=== PATIENT | male | born 1950 | race Caucasian/White ===

== ENCOUNTER → 2018-10-30 | Outpatient (REF) | payer MEDICARE, OTHER | LOC: M SMT 13:39 | PROVIDERS: ATTEND Nurse Practitioner Family | DX: R97.20 Elevated prostate specific antigen [PSA] (principal) | CPT/HCPCS: 87086; G0463 ==

== ENCOUNTER → 2019-02-25 | Outpatient (CLI) | payer MEDICARE, OTHER ==
[~2019-02-25] MED LIST: ASPI81TA85 PO; CIAL20TA PO; LANTINJ4 SC; LISI-542 PO; METF-791 PO; NITR0.4S14 SL; NOVOINJ3 SC; SIMV40TA20 PO; TRUL10IN SC
--- NOTE | 2019-02-25 12:26 | REPPI ---
Prostate sonography: History: Elevated PSA. Sonographic findings: Trans rectal prostate sonography demonstrates unremarkable seminal vesicles. Prostate gland is heterogeneously enlarged with calcifications and cystic changes noted. Glandular dimensions are measured at 4.7 x 2.6 x 4.8 cm with a calculated glandular volume of 3.2 ml. Transrectal sonographic guidance is provided to Dr. Billings who performed trans rectal ultrasound guided needle biopsy procedure . Electronically Signed by Jonas Goode MD 02/25/2019 12:18 P
== END ==
LOC: M SMT PRO 08:13
PROVIDERS: ATTEND Urology
DX: C61 Malignant neoplasm of prostate (principal)
CPT/HCPCS: 55700; 76872; 76942; A4648; G0416

== ENCOUNTER 2019-04-02 05:56 | Inpatient (IN) | payer MEDICARE, BC, OTHER ==
[~2019-04-02] VITALS: Ht 177.8 cm; Wt 102.1 kg
[2019-04-02] VITALS (8 sets, daily range): BP systolic 110–119; BP diastolic 58–64
[~2019-04-02 05:56] MED LIST changes: +CORICAP PO; +METO25TA4 PO
[2019-04-02] MEDS ORDERED: HEPARIN SOD (PORCINE) 5000 UNITS/ML VIAL (J1644 PER 1000UNITS) SQ ONE (06:45)
[2019-04-02] MEDS ORDERED: LR 1,000 ML IV ONE (07:00)
[2019-04-02] MEDS ORDERED: ceFAZolin SOD 2 GM in IV 1 EA IV ONE (07:00)
[2019-04-02] MEDS ORDERED: LIDOCAINE 1% SDV INJ 30 ML VIAL As Ordered ONE (07:07)
[2019-04-02] MEDS ORDERED: BUPIVACAINE HCL 0.25% 30 ML VIAL As Ordered ONE (07:07)
[2019-04-02] MEDS ORDERED: LIDOCAINE 2% INJ 100 MG/5 ML SDV (FOR ANES.) As Ordered ONE (07:17)
[2019-04-02] MEDS ORDERED: dexameTHASONE 4 MG/ML 1ML VIAL (J1100) As Ordered ONE (07:17)
[2019-04-02] MEDS ORDERED: propofoL 200 MG/20 ML VIAL As Ordered ONE (07:17)
[2019-04-02] MEDS ORDERED: ROCURONIUM BROMIDE 50 MG/5 ML VIAL As Ordered ONE ×2 (07:17→08:37)
[2019-04-02] MEDS ORDERED: fentaNYL 250 MCG/5 ML INJECTION (J3010) As Ordered ONE (07:20)
[2019-04-02] MEDS ORDERED: MIDAZOLAM INJ 2 MG/2 ML VIAL (J2250) As Ordered ONE (07:21)
[2019-04-02] MEDS ORDERED: GLUCOSE 4 GM CHEW TABLET PO PRN (07:45)
[2019-04-02] MEDS ORDERED: DEXTROSE 50% 50 ML SYRINGE IV PRN (07:45)
[2019-04-02] MEDS ORDERED: NITROGLYCERIN 0.4 MG SUBL TABLET SL PRN (07:45)
[2019-04-02] MEDS ORDERED: PERCOCET 5MG/325MG TAB PO PRN ×2 (07:45)
[2019-04-02] MEDS ORDERED: ACETAMINOPHEN TAB 650MG DOSE (2X325MG) PO PRN (07:45)
[2019-04-02] MEDS ORDERED: MORPHINE 2 MG/ML 1ML VIAL (J2270) IV PRN (07:45)
[2019-04-02] MEDS ORDERED: ONDANSETRON 4MG/2ML VIAL (J2405) IV PRN ×2 (07:45→12:45)
[2019-04-02] MEDS ORDERED: GLUCAGON FOR INJ 1 MG VIAL (J1610) SC PRN (07:45)
[2019-04-02] MEDS ORDERED: LACRILUBE (AKWA TEARS) OPHTH OINT 3.5 GM As Ordered ONE (07:56)
[2019-04-02] MEDS ORDERED: PHENYLephrine HCL 500 MCG/5 ML (100MCG/ML) SYRINGE (J2370) As Ordered ONE ×2 (08:02→11:10)
[2019-04-02] MEDS ORDERED: METOCLOPRAMIDE INJ 10MG/2ML VIAL (J2765) As Ordered ONE (08:21)
[2019-04-02] MEDS ORDERED: ePHEDrine SULFATE 25 MG/5 ML(5MG/ML) SYRINGE As Ordered ONE ×2 (08:51→11:10)
[2019-04-02] MEDS ORDERED: ACETAMINOPHEN 1000MG 100ML IV BTL (OFIRMEV) (J0131 PER 10MG) As Ordered ONE (09:19)
[2019-04-02] MEDS ORDERED: HYDROmorphone HCL 2 MG/ML 1ML VIAL (J1170) As Ordered ONE (09:19)
[2019-04-02] MEDS ORDERED: METOPROLOL 5 MG/5 ML VIAL As Ordered ONE (11:10)
[2019-04-02] MEDS ORDERED: SUGAMMADEX SODIUM 500 MG/5 ML VIAL (BRIDION) As Ordered ONE (11:32)
[2019-04-02] MEDS: HumaLOG INSULIN (NovoLOG) PER UNIT SC SCH ×2 (12:00→17:13)
[2019-04-02] MEDS: NS 1,000 ML IV SCH ×2 (12:30→20:57)
[2019-04-02] MEDS ORDERED: fentaNYL 100 MCG/2 ML INJECTION (J3010) IV PRN (12:45)
[2019-04-02] MEDS ORDERED: oxyCODONE 5MG TAB PO PRN (12:45)
[2019-04-02] MEDS ORDERED: LR 1,000 ML IV SCH (12:45)
--- NOTE | 2019-04-02 12:51 | ROOPDOC ---
[facility] Report Of Operation Report of Operation DATE OF PROCEDURE: 04/02/19 PREPROCEDURE DIAGNOSES: Prostate Cancer. POSTPROCEDURE DIAGNOSES: Prostate Cancer. PROCEDURE: Robotic-assisted Laparoscopic Radical Prostatectomy with Bilateral Pelvic Lymph Node Dissection. SURGEON: Taisha Flores MD DIRECTOR STAGE: Jolene Guadalupe NP ANESTHESIA: General. OPERATIVE INDICATIONS: This is a 68 year old male with clinical T1c [place] 4+3 prostate cancer, here today for treatment. DESCRIPTION OF PROCEDURE: The patient was brought to the operating room and general anesthesia was induced. Prophylactic antibiotics were infused. He was then placed in the supine position and prepped and draped in the usual sterile fashion. At this point, a Cook catheter was inserted into the bladder and the balloon was filled with 10 mL of sterile water. We then made a midline incision just above the umbilicus for an 8 mm port. A Veress needle was utilized to achieve pneumoperitoneum. Next, an 8 mm port was inserted into the incision and subsequently a camera was inserted. There were no injuries from the Veress needle or initial trocar placement. Then three robotic ports were placed in the usual configuration in line just below the level of the umbilicus. An 12 mm title assistant port was inserted lateral to the camera port. Once all the ports were placed, the robot was docked. Additional lysis of adhesions between the sigmoid colon and abdominal wall was then performed. The bladder was then released from the anterior abdominal wall using electrocautery. Once the bladder was dropped, the fat overlying the prostate was cleared using electrocautery. The superficial dorsal vein was controlled with electrocautery. The endopelvic fascia was opened on both sides and the dorsal venous complex was cleared. Next, a #0 Vicryl [id number] stitch was placed around the dorsal venous complex. Once that was done, the bladder was opened and dissected away from the prostate. At this point, the prostate was lifted up. The vasa deferentia were identified in the midline. They were ligated and transected. The seminal vesicles were also dissected bilaterally. The rectum was safely mobilized away from the prostate. At this point the left neurovascular bundle was dissected off of the prostate using cold scissors. I then ligated and transected bilateral prostatic pedicles using the Harmonic scalpel. The pedicles were carried towards the apex. After taking care of the pedicles and mobilizing the rectum off the prostate below, the prostate was only connected by the urethra. At this point, the dorsal venous complex was transected with electrocautery. The urethra was then opened and the catheter was withdrawn and the posterior urethra was transected, thus freeing the prostate. At this point, we checked for hemostasis and it appeared very good. Next, we performed bilateral pelvic lymph node dissection. This was done in a standard fashion. The limits of dissection were the iliac vein proximally, the obturator nerve distally, the pelvic sidewall laterally, and the bladder medially. All lymphatic tissue within these limits was removed. I performed the same procedure on both the right and left sides. Hemostasis was then obtained with a combination of bipolar electrocautery and Weck clips. The lymphatic packets were then placed in separate Endo Catch bags for future retrieval. Once hemostasis was confirmed, I then moved on to perform the vesicourethral anastomosis. The vesicourethral anastomosis was performed in running fashion using a Quill stitch. Once this was done, the final #20-[place] Cook catheter was placed. The balloon was filled with 15 mL of sterile water. Upon completion of the vesicourethral anastomosis, it was tested by filling the bladder with sterile water. The anastomosis appeared to be watertight. At this point, the prostate and seminal vesicles were placed in an Endo Catch bag for future retrieval. A Raymundo-Lujan drain was brought in through the left robotic port skin site and the drain was positioned anterior to the bladder. The robot was then undocked. A Clifford-Pricila fascial closure device was utilized to place a #0 Vicryl suture through the fascia of the 12 mm title assistant port. The drain was secured to the skin with #2-0 Ethilon suture. The prostate, as well as the lymphatic packets were then extracted from the camera port site after the skin was extended. The fascia in this incision was then closed with a running #0 Vicryl stitch. Next, all the remaining ports were removed and there did not appear to be any bleeding from any of the port sites. The previously placed #0 Vicryl free ties through the title assistant port were then tied down and all incisions were irrigated. Last, all of the incisions were closed with running subcuticular #4-0 Monocryl sutures. Local anesthesia was applied. Dermabond was then applied to the incisions. This marked the conclusion of the procedure. The patient was then awakened from anesthesia and transported to the recovery room in stable condition. ESTIMATED BLOOD LOSS: 75mL. COMPLICATIONS: None. SPECIMENS: Prostate and seminal vesicles, right pelvic lymph nodes, left pelvic lymph nodes. PLAN: The patient will be admitted to the hospital postoperatively, and he will likely be discharged home within the next 1-2 days. TAISHA FLORES MD Apr 02, 2019 12:51
[2019-04-02 13:33] LABS: HEMATOCRIT 40.3 % (42.0-52.0); HEMOGLOBIN 13.1 g/dl (13.5-17.5); MEAN CORPUSCULAR HEMOGLOBIN 30.6 pg (27.0-33.0); MEAN CORPUSCULAR HGB CONC 32.5 g/dl (32.0-36.5); MEAN CORPUSCULAR VOLUME 94.2 fl (80.0-96.0); PLATELET COUNT, AUTOMATED 176 10^3/uL (150-450); RED BLOOD COUNT 4.28 10^6/uL (4.30-6.10); WHITE BLOOD COUNT 13.6 10^3/uL (4.0-10.0)
[2019-04-02 13:59] LABS: CALCIUM LEVEL 8.8 MG/DL (8.8-10.2); CREATININE FOR GFR 1.8 MG/DL (0.70-1.30); GLOMERULAR FILTRATION RATE 40.3 (>49); POTASSIUM SERUM 4.8 MEQ/L (3.5-5.1)
[2019-04-02] MEDS: HEPARIN SOD (PORCINE) 5000 UNITS/ML VIAL (J1644 PER 1000UNITS) SC SCH ×2 (14:00→21:13)
[2019-04-02] MEDS: DOCUSATE SODIUM 100 MG CAP PO SCH ×2 (15:27→21:12)
[2019-04-02] MEDS: ceFAZolin SOD 1 GM in D5W MINI-BAG PLUS 50 ML IV SCH (15:27)
[2019-04-02] MEDS ORDERED: SIMVASTATIN 40 MG TAB PO SCH (21:00)
[2019-04-02] MEDS ORDERED: HumaLOG INSULIN (NovoLOG) PER UNIT SC SCH (21:00)
[2019-04-02] MEDS: METOPROLOL TART 25 MG TABLET PO SCH (21:13)
[2019-04-03] MEDS: ceFAZolin SOD 1 GM in D5W MINI-BAG PLUS 50 ML IV SCH (00:17)
[2019-04-03 02:00] VITALS: BP 118/59
[2019-04-03] MEDS: HEPARIN SOD (PORCINE) 5000 UNITS/ML VIAL (J1644 PER 1000UNITS) SC SCH (05:05)
[2019-04-03 06:00] VITALS: BP 125/54
[2019-04-03 06:17] LABS: HEMATOCRIT 39.1 % (42.0-52.0); HEMOGLOBIN 12.8 g/dl (13.5-17.5); MEAN CORPUSCULAR HEMOGLOBIN 30.9 pg (27.0-33.0); MEAN CORPUSCULAR HGB CONC 32.7 g/dl (32.0-36.5); MEAN CORPUSCULAR VOLUME 94.4 fl (80.0-96.0); PLATELET COUNT, AUTOMATED 170 10^3/uL (150-450); RED BLOOD COUNT 4.14 10^6/uL (4.30-6.10); WHITE BLOOD COUNT 14.7 10^3/uL (4.0-10.0)
[2019-04-03 06:38] LABS: CALCIUM LEVEL 8.2 MG/DL (8.8-10.2); CREATININE FOR GFR 1.61 MG/DL (0.70-1.30); GLOMERULAR FILTRATION RATE 45.8 (>49); POTASSIUM SERUM 4.9 MEQ/L (3.5-5.1)
[2019-04-03] MEDS ORDERED: CIPROFLOXACIN 500 MG TAB PO SCH (07:45)
--- NOTE | 2019-04-03 08:07 | IPNPDOC ---
Subjective Review oF Systems Chief Complaint The patient is a 68-year-old male admitted with a reason for visit of Prostate Cancer. Events since Last Encounter No acute events o/n. Good pain control. No n/v. Tolerating clears. Ambulated twice. No f/c/ns. No chest pain or SOB. Objective Physical Examination General Exam: Alert, Cooperative, No Acute Distress ABDOMEN EXAM: Soft, Tenderness (mild), Other (incisions clean/dry/intact; MATILDA w/ serosanguinous output) Skin Exam: Nl turgor and temperature Neuro Exam: Normal Speech Psych Exam: Mental status NL, Mood NL Other physical findings catheter draining light pink urine Vital Signs/I&O Vital Signs Date Time Temp Pulse Resp B/P (MAP) Pulse Ox O2 Delivery O2 Flow Rate FiO2 04/03/19 06:00 98.1 99 17 125/54 (77) 97 Room Air 04/02/19 18:58 2.0 I&O- Last 24 Hours up to 6 AM 04/03/19 05:59 Intake Total 3290 ml Output Total 740 ml Balance 2550 ml Laboratory Data Labs 24H Laboratory Tests 2 04/02/19 12:23: Bedside Glucose (Misc Panel) 179H 04/02/19 12:30: Nucleated Red Blood Cells % (auto) 0.0, Anion Gap 7L, Glomerular Filtration Rate 40.3L, Calcium Level 8.8 04/02/19 16:27: Bedside Glucose (Misc Panel) 234H 04/02/19 20:37: Bedside Glucose (Misc Panel) 221H 04/03/19 05:56: Nucleated Red Blood Cells % (auto) 0.0, Anion Gap 6L, Glomerular Filtration Rate 45.8L, Calcium Level 8.2L CBC/BMP Laboratory Tests 04/02/19 12:30 04/03/19 05:56 FSBS Laboratory Tests Test 04/02/19 12:23 04/02/19 16:27 04/02/19 20:37 Range/Units Bedside Glucose (Misc Panel) 179 234 221 80-115 MG/DL Assessment/Plan Date Seen The patient was seen on 04/03/19. Patient Summary This is a 68 y/o M POD1 s/p RALP w/ BPLND. Hb stable. Cr 1.6 (from 1.4 baseline). Good UOP. Minimal MATILDA output. Plan/VTE VTE Prophylaxis Ordered?: Yes VTE Exclusion Mechanical Proph: N/A:VTE Prophy Ordered VTE Exclusion Pharmacological: N/A:VTE Prophy Ordered Plan/Urinary Catheter Urinary Catheter: Other Catheter: (catheter will need to stay in for at least 7 days for healing of vesicourethral anastomosis) Plan - d/c IVF - percocet prn pain - cont home meds - SSI - SQH - SCDs when in bed - incentive spirometry - ambulate - clears -> ADAT - possible discharge home later today w/ catheter - will d/c MATILDA prior to discharge TAISHA FLORES MD Apr 03, 2019 08:07
[2019-04-03] MEDS: HumaLOG INSULIN (NovoLOG) PER UNIT SC SCH ×2 (08:25→12:00)
[2019-04-03 08:27] VITALS: BP 136/78
[2019-04-03] MEDS: DOCUSATE SODIUM 100 MG CAP PO SCH (08:27)
[2019-04-03] MEDS: METOPROLOL TART 25 MG TABLET PO SCH (08:27)
[2019-04-03] MEDS ORDERED: LISINOPRIL *2.5 MG* TAB PO SCH (09:00)
[2019-04-03] MEDS ORDERED: CIPR-249 PO (11:54)
[2019-04-03] MEDS ORDERED: DOCU100C16 PO (11:54)
--- NOTE | 2019-04-03 18:06 | DSES ---
DATE OF ADMISSION: 04/02/2019 DATE OF DISCHARGE: 04/03/2019 ADMISSION DIAGNOSIS: Prostate cancer. DISCHARGE DIAGNOSIS: Prostate cancer. ADMITTING PHYSICIAN: Dr. Marcelo Billings DISCHARGE PHYSICIAN: Dr. Marcelo Billings PROCEDURE PERFORMED: Robotic-assisted laparoscopic radical prostatectomy with bilateral pelvic lymph node dissection on 04/02/2019. HISTORY OF PRESENT ILLNESS: This is a 68-year-old male with what appears to be organ-confined prostate cancer. He underwent the above-listed procedure and was admitted to the hospital postoperatively. HOSPITALIZATION COURSE: Patient was admitted to the hospital after undergoing the above procedure. His postoperative course was unremarkable. On postoperative day #1, he was ambulating well. He very good pain control and was not taking any narcotic pain medications. He was tolerating a regular diet without nausea or vomiting. All of his blood work during his hospital stay was within acceptable limits. He had good urine output from his catheter and minimal output from his Raymundo-Lujan drain. His Raymundo-Lujan drain was removed on postoperative day #1. Since he was doing so well, he was deemed ready for discharge home on postoperative day #1. He was discharged home with his catheter in place with the plan for him to followup in clinic in 1 week for catheter removal and to discuss pathology results.
== END 2019-04-03 13:23 | disposition home or self-care (01) | DRG 708 ==
LOC: M SDC 05:56 → M MSPAV 07:50
PROVIDERS: ADMIT Urology; ATTEND Urology
PROC: 07BC4ZX Excision of Pelvis Lymphatic, Percutaneous Endoscopic Approach, Diagnostic (ICD-10-PCS; 2019-04-02)
PROC: 8E0W4CZ Robotic Assisted Procedure of Trunk Region, Percutaneous Endoscopic Approach (ICD-10-PCS; 2019-04-02)
PROC: 0VT04ZZ Resection of Prostate, Percutaneous Endoscopic Approach (ICD-10-PCS; principal; 2019-04-02 07:30)
DX: C61 Malignant neoplasm of prostate (principal); I25.10 Atherosclerotic heart disease of native coronary artery without angina pectoris; E11.9 Type 2 diabetes mellitus without complications; E78.5 Hyperlipidemia, unspecified; I10 Essential (primary) hypertension; Z95.1 Presence of aortocoronary bypass graft; Z79.4 Long term (current) use of insulin; Z79.82 Long term (current) use of aspirin; Z79.899 Other long term (current) drug therapy; Z88.0 Allergy status to penicillin; Z87.891 Personal history of nicotine dependence

== ENCOUNTER → 2020-03-29 | Outpatient (REF) | payer MEDICARE, OTHER ==
[~2020-03-29] MED LIST changes: -ASPI81TA85 PO; +ASPI81TA86 PO; +CIPR-249 PO; +DOCU100C16 PO; -LISI-542 PO; +LISI-898 PO; -METF-791 PO; +METF-838 PO
[2020-03-29 19:04] LABS: MAU/CREAT RATIO 8.5 MCG/MG (0.0-30.0)
== END ==
LOC: M LAB REF 16:58
PROVIDERS: ATTEND Nurse Practitioner Family
DX: E11.65 Type 2 diabetes mellitus with hyperglycemia (principal)

== ENCOUNTER → 2020-09-24 | Outpatient (CLI) | payer MEDICARE, BC, OTHER ==
[~2020-09-24] MED LIST changes: +BRIL90TA PO
--- NOTE | 2020-09-24 10:44 | RADONC.CN ---
Radiation Oncology Hx/Consult Radiation Oncology Consult Date of Service: Sep 24, 2020 Pt Identifier Tamir Marsh is a 69 year old male with [id number] [place] 3+4=7 positive margin post-op PSA to 0.19. He is seen today for consideration of salvage RT. Diagnosis/Treatment History Oncologic History Followed by Dr. Flores for elevated PSA PSA Pre-op 5.0 05/05/19 0.05 (post-op) 02/16/20 0.12 06/08/20 0.15 08/10/20 0.08 09/10/20 0.19 04/02/19 RALP [place] 3+4=7 Positive margin right posterior [id number] IPSS 1 BLANCHE 1 Interval History Here with his . Currently drives a truck locally for farmers. [employer]. Reports he has no urinary bother at this time. No leakage, full continence. No problems with bowels. Has no erections since surgery. Appetite good and weight stable. Past Medical History: CAD HTN DMII HPL Past Surgical History: CABG PCI w/ stents Family History: No family cancer history Social History: Never smoker Drinks ~ 6 drinks per week Allergies / Meds Allergies: Coded Allergies: Penicillins (Verified Allergy, Unknown, A BABY UNKNOWN OF REACTION, 04/02/19) Home Meds Active Scripts Docusate Sodium (Docusate Sodium) 100 Mg Capsule, 100 MG PO BID, #20 CAP Prov:TAISHA FLORES MD 04/03/19 Reported Medications Ticagrelor Base (Brilinta) 90 Mg Tablet, 1 TAB PO BID for 30 Days, #60 TAB 09/24/20 Metoprolol Tartrate (Metoprolol Tartrate) 25 Mg Tablet, 25 MG PO BID, TAB 03/27/19 Insulin Glargine,Hum.rec.anlog (Lantus Solostar) 100 Unit/1 Ml Insuln.pen, 32 UNITS SC QHS, INJ 03/27/19 Tadalafil (Cialis) 20 Mg Tablet, 20 MG PO DAILYPRN PRN for erectile dysfunction, TAB 03/25/19 Simvastatin (Simvastatin) 40 Mg Tablet, 40 MG PO DAILY, TAB 03/25/19 Nitroglycerin (Nitroglycerin) 0.4 Mg Tab.subl, 0.4 MG SL ASDIRECTED for chest pain 03/25/19 Metformin HCl (Metformin HCl ER) 500 Mg Tab.er.24h, 500 MG PO BID, TAB 03/25/19 Lisinopril (Lisinopril) 5 Mg Tablet, 2.5 MG PO DAILY, TAB 03/25/19 Insulin Glargine,Hum.rec.anlog (Lantus Solostar) 100 Unit/1 Ml Insuln.pen, 26 UNITS SC QAM, INJ 03/25/19 Insulin Aspart (Novolog Flexpen) 100 Unit/1 Ml Insuln.pen, UNITS SC BID, INJ sliding scale 03/25/19 Dulaglutide (Trulicity) 0.75 Mg/0.5 Ml Pen.injctr, 0.75 MG SC Q7D 03/25/19 Aspirin (Aspir 81) 81 Mg Tablet.dr, 81 MG PO Q2D, #30 TAB 03/25/19 Discontinued Scripts Ciprofloxacin HCl (Cipro) 500 Mg Tablet, 500 MG PO DAILY@06 for 8 Days, #8 TAB Prov:TAISHA FLORES MD 04/03/19 Review of Systems Constitutional: Denies: Chills, Fever, Weight Loss Eyes: Denies: Pain HEENT: Denies: Head Aches Skin: Denies: Rash Pulmonary: Denies: Dyspnea, Cough Cardiovascular: Denies: Chest Pain, Palpitations Gastrointestinal: Denies: Abdominal Pain Genitourinary: Denies: Dysuria, Frequency, Incontinence Musculoskeletal: Denies: Neck pain, Back pain Neurological: Denies: Weakness, Numbness Psych: Reports: Mood Normal Vital Signs Wt 221 lbs T 96.7 P 85 RR 20 BP 136/89 O2 98% Pain 0 Fatigue 0 General Exam: Alert, Cooperative, No Acute Distress Eye Exam: PERRLA, EOMI ENT EXAM: Atraumatic Neck Exam: Supple Chest Exam: Clear to auscultation Heart Exam: Rate Normal Abdomen Exam: Soft Extremity Exam: Negative: Edema Skin Exam: Nl turgor and temperature Neuro Exam: Normal Gait, Normal Speech, Cranial Nerves 3-12 NL Psych Exam: Mental status NL Diagnostic and Laboratory Diagnostic Review Radiologic images, relevant labs and pathology reports were personally reviewed and discussed with Mr. Marsh. Assessment and Plan Impression Mr. Marsh is a 69 year old male with a history of [id number] [place] 3+4=7 positive margin post-op PSA to 0.19. He is seen today for consideration of salvage RT. Stage Prostate cancer [id number] [place] 3+4=7 post-op PSA to 0.19 positive margin stage IIB Performance Status ECOG 0 Plan We had an extensive discussion with Mr. Marsh regarding the diagnosis at hand and available therapeutic options. He is doing well from a urinary standpoint with full continence and no bother whatsoever. I discussed that the positive margin on pathology portends a more favorable outcome from salvage RT. In his case with a low post-operative PSA and positive margin I would treat only the prostate bed. I recommend 68.4 Gy in 38 fractions with VMAT. With respect to adjuvant ADT, I discussed with him that the benefit of 6 months of lupron in his case may be marginally better than RT alone based on the results of the SPPORT trial and based on the [facility] nomogram which predicts 75% probability of bPFS with RT alone, versus 87% with RT+ADT. He will consider the option of ADT with RT and decide. We discussed the logistics of receiving radiation therapy in detail including the need for a 1-time planning session. This can occur next week. We reviewed the side effects of treatment including fatigue, irritative voiding symptoms, loose bowel movements, late rectal bleeding, and with respect to ADT fatigue, hot flashes, weight gain and mood changes. After discussing the risks, benefits and alternatives to radiation therapy, Mr. Marsh was amenable to pursuing radiotherapy. All questions were answered to the patient's satisfaction. We instructed the patient that if there were any questions,concerns or changes in clinical status in the interim to contact us. Recommendations Salvage RT 68.4 Gy in 38 fractions Simulation in the next week Patient to consider short-term ADT or not Billing Statement Total time of [48] minutes was spent preparing for the visit [3], obtaining HPI [6], examining the patient [2], reviewing diagnostic tests [5], discussing management options [21], coordinating care [2], and writing this note [9]. KARMEN MANN MD Sep 24, 2020 10:44
== END ==
LOC: M ONCR 08:46
PROVIDERS: ATTEND General Practice
DX: C61 Malignant neoplasm of prostate (principal); E11.9 Type 2 diabetes mellitus without complications; E78.5 Hyperlipidemia, unspecified; I10 Essential (primary) hypertension; I25.10 Atherosclerotic heart disease of native coronary artery without angina pectoris; Z79.82 Long term (current) use of aspirin; Z79.899 Other long term (current) drug therapy; Z88.0 Allergy status to penicillin; Z95.1 Presence of aortocoronary bypass graft

== ENCOUNTER 2020-10-04 13:51 | Outpatient (RCR) | payer MEDICARE, BC, OTHER ==
[~2020-10-04 13:51] MED LIST changes: -LISI-898 PO; +LISI5TAB11 PO
[2020-10-15] MEDS ORDERED: BICA50TA9 PO (09:44)
== END 2020-10-05 ==
LOC: M ONCR 13:51
PROVIDERS: ATTEND General Practice
DX: C61 Malignant neoplasm of prostate (principal)

== ENCOUNTER → 2020-10-25 | Outpatient (CLI) | payer MEDICARE, BC, OTHER ==
[~2020-10-25] MED LIST changes: +BICA50TA9 PO; +LISI-898 PO; -LISI5TAB11 PO
--- NOTE | 2020-11-17 16:08 | RADENCPD ---
Date/Time of Encounter Date of Encounter: Oct 25, 2020 Time of Encounter: 16:07 Encounter 45 mg lupron given per RN. Informed consent obtained by me prior to injection. Indication: Salvage prostate cancer treatment EBRT + 6 month ADT. Plan: Will continue EBRT KARMEN MANN MD Nov 17, 2020 16:08
== END ==
LOC: M ONCR 09:33
PROVIDERS: ATTEND General Practice
DX: C61 Malignant neoplasm of prostate (principal)

== ENCOUNTER → 2020-11-04 | Outpatient (RCR) | payer MEDICARE, BC, OTHER ==
[~2020-11-04] MED LIST changes: +LEUPROLIDE 45MG SYRINGE KIT (LUPRON DEPOT) (FOR ONCOLOGY) IM ONE
== END ==
LOC: M ONCR 10-06 16:02
PROVIDERS: ATTEND General Practice
DX: C61 Malignant neoplasm of prostate (principal)
CPT/HCPCS: 77300; 77301; 77336; 77338; 77385; J9217

== ENCOUNTER 2020-12-03 09:36 | Outpatient (RCR) | payer MEDICARE, BC, OTHER ==
[~2020-12-03 09:36] MED LIST changes: -LEUPROLIDE 45MG SYRINGE KIT (LUPRON DEPOT) (FOR ONCOLOGY) IM ONE
== END 2020-12-05 ==
LOC: M ONCR 09:36
PROVIDERS: ATTEND General Practice
DX: C61 Malignant neoplasm of prostate (principal); R53.83 Other fatigue

== ENCOUNTER 2020-12-07 09:38 | Outpatient (RCR) | payer MEDICARE, BC, OTHER ==
[~2020-12-07 09:38] MED LIST changes: -LISI-898 PO; +LISI5TAB11 PO
== END 2021-01-04 ==
LOC: M ONCR 09:38
PROVIDERS: ATTEND General Practice
DX: C61 Malignant neoplasm of prostate (principal)

== ENCOUNTER → 2021-03-16 | Outpatient (CLI) | payer MEDICARE, BC, OTHER | LOC: M ONCR 10:14 | PROVIDERS: ATTEND General Practice | DX: C61 Malignant neoplasm of prostate (principal); Z79.4 Long term (current) use of insulin; Z79.82 Long term (current) use of aspirin; Z79.899 Other long term (current) drug therapy; Z88.0 Allergy status to penicillin; Z92.3 Personal history of irradiation ==

== ENCOUNTER → 2022-03-16 | Outpatient (CLI) | payer MEDICARE, BC, OTHER | LOC: M ONCR 10:18 | PROVIDERS: ATTEND General Practice | DX: C61 Malignant neoplasm of prostate (principal); N52.9 Male erectile dysfunction, unspecified; Z79.4 Long term (current) use of insulin; Z79.82 Long term (current) use of aspirin; Z79.84 Long term (current) use of oral hypoglycemic drugs; Z79.85 Long-term (current) use of injectable non-insulin antidiabetic drugs; Z79.899 Other long term (current) drug therapy; Z88.0 Allergy status to penicillin | CPT/HCPCS: 36415; 84153; G0463 ==

== ENCOUNTER → 2022-05-11 | Outpatient (REF) | payer MEDICARE, BC, OTHER ==
[2022-05-11 18:35] LABS: CREATININE, URINE 175.6 MG/DL; MAU/CREAT RATIO 5.6 MCG/MG (0.0-30.0)
== END ==
LOC: M LAB REF 17:30
PROVIDERS: ATTEND Nurse Practitioner Family
DX: E11.65 Type 2 diabetes mellitus with hyperglycemia (principal)

== ENCOUNTER → 2023-03-16 | Outpatient (CLI) | payer MEDICARE, BC, OTHER | LOC: M ONCR 10:27 | PROVIDERS: ATTEND General Practice | DX: C61 Malignant neoplasm of prostate (principal); Z71.2 Person consulting for explanation of examination or test findings; Z92.3 Personal history of irradiation; Z92.29 Personal history of other drug therapy; Z88.0 Allergy status to penicillin; Z88.1 Allergy status to other antibiotic agents; Z79.4 Long term (current) use of insulin; Z79.84 Long term (current) use of oral hypoglycemic drugs; Z79.899 Other long term (current) drug therapy; Z79.82 Long term (current) use of aspirin ==

== ENCOUNTER → 2024-03-18 | Outpatient (CLI) | payer MEDICARE, BC, OTHER ==
[~2024-03-18] MED LIST changes: +BICA50TA4 PO; -BICA50TA9 PO; +SILD25TA2 PO
== END ==
LOC: M ONCR 10:21
PROVIDERS: ATTEND General Practice
DX: C61 Malignant neoplasm of prostate (principal); N52.35 Erectile dysfunction following radiation therapy; Z90.79 Acquired absence of other genital organ(s); Z92.3 Personal history of irradiation; Z88.0 Allergy status to penicillin; Z88.1 Allergy status to other antibiotic agents; Z79.82 Long term (current) use of aspirin; Z79.899 Other long term (current) drug therapy; Z79.4 Long term (current) use of insulin; Z79.84 Long term (current) use of oral hypoglycemic drugs

== ENCOUNTER → 2025-01-19 | Outpatient (CLI) | payer MEDICARE, BC, OTHER | LOC: M LAB 11:51 | PROVIDERS: ATTEND Urology | DX: C61 Malignant neoplasm of prostate (principal) ==